=== PATIENT | male | born 1975 | race Caucasian/White ===

== ENCOUNTER 2017-06-05 08:50 | Emergency (ER) | payer OTHER ==
[~2017-06-05] VITALS: Ht 188 cm; Wt 92.0 kg
[~2017-06-05 08:50] MED LIST: ALBU1AER INH; MEDR4PAK3 PO; SUBO8MIS SL; VIST50CA PO
[2017-06-05 08:51] VITALS: BP 146/86; PULSE 83; RESP 16; TEMP 98.3; O2SAT 97
[2017-06-05] MEDS ORDERED: ALPR.5 PO (09:07)
[2017-06-05] MEDS ORDERED: HYDR-3583 PO (09:07)
[2017-06-05] MEDS ORDERED: SODIUM CHLORIDE 0.9% FLUSH 10 ML FLUSH IVF PRN (09:45)
[2017-06-05] MEDS ORDERED: ASPIRIN 81 MG CHEW TAB PO ONE (09:45)
[2017-06-05 09:51] VITALS: RESP 17; O2SAT 97
--- NOTE | 2017-06-05 09:58 | PD ---
HPI . Numbness Chief Complaint: Chest Pain Time Seen by Provider: 09:44 Travel History International Travel<30 days: No Contact w/Intl Traveler<30days: No Traveled to known affect area: No History of Present Illness HPI Patient presents with a chief complaint of left upper extremity numbness. Onset was about 6:30 AM. Symptoms are spontaneously improving. He is also complaining with some pain in his left axilla. He describes it as a sharp pain. No modifying factors. In addition, he states that he feels disoriented, short of breath and has a very dry mouth. He feels very anxious. He states that he took a Xanax and no symptoms are improving. Patient admits to tobacco abuse and alcohol abuse. He states that he smokes marijuana every other day. He denies any cocaine or methamphetamine abuse. [facility] Past Medical History Anxiety: Yes Diminished Hearing: No Neurologic: Yes (DEGENERATIVE DISC DISEASE) Social History Alcohol Use: Yes (frequently) Tobacco Use: Yes (1 ppd) Substance Use: Yes (THC weekly) Allergies-Medications (Allergen,Severity, Reaction): Coded Allergies: No Known Allergies (Unverified Adverse Reaction, Unknown, 06/05/17) Reported Meds & Prescriptions Reported Meds & Active Scripts Active Reported Hydrocodone-Acetaminophen 10-325 mg Tab 1 Tab PO Q4H PRN Xanax (Alprazolam) 0.5 Mg Tab 0.5 Mg PO Q4H PRN Review of Systems Except as stated in HPI: all other systems reviewed are Neg Cardiovascular: Positive: Chest Pain or Discomfort Respiratory: Positive: Shortness of Breath Neurologic: Positive: Paresthesia Physical Exam Narrative GENERAL: Awake and alert. He smells of tobacco and alcohol. SKIN: warm/dry. HEAD: Normocephalic. Atraumatic. EYES: Pupils equal and round. No scleral icterus. No injection or drainage. ENT: No nasal bleeding or discharge. Mucous membranes pink and moist. NECK: Trachea midline. Full range of motion without pain.. CARDIOVASCULAR: Regular rate and rhythm. Heart sounds are normal. RESPIRATORY: No accessory muscle use. Clear to auscultation. Breath sounds equal bilaterally. GASTROINTESTINAL: Abdomen soft. Nontender. Bowel sounds present. Nondistended. MUSCULOSKELETAL: No obvious deformities. Tender at the insertion of the left pectoralis muscle. NEUROLOGICAL: Awake and alert. No obvious cranial nerve deficits. Motor grossly within normal limits. Normal speech. PSYCHIATRIC: Appropriate mood and affect; insight and judgment normal. Data Data Last Documented VS Vital Signs Date Time Temp Pulse Resp B/P (MAP) Pulse Ox O2 Delivery O2 Flow Rate FiO2 06/05/17 09:51 17 97 Room Air 06/05/17 09:02 96 06/05/17 08:51 98.3 Orders Orders Basic Metabolic Panel (Bmp) (06/05/17 09:44) Complete Blood Count With Diff (06/05/17 09:44) Magnesium (Mg) (06/05/17 09:44) Troponin I (06/05/17 09:44) Chest, Single Ap (06/05/17 09:44) Ecg Monitoring (06/05/17 09:44) Iv Access Insert/Monitor (06/05/17 09:44) Oximetry (06/05/17 09:44) Aspirin Chew (Aspirin Chew) (06/05/17 09:45) Sodium Chloride 0.9% Flush (Ns Flush) (06/05/17 09:45) Electrocardiogram (06/05/17 ) Labs Laboratory Tests Test 06/05/17 09:52 White Blood Count 8.2 TH/MM3 Red Blood Count 4.97 MIL/MM3 Hemoglobin 16.5 GM/DL Hematocrit 47.4 % Mean Corpuscular Volume 95.4 FL Mean Corpuscular Hemoglobin 33.1 PG Mean Corpuscular Hemoglobin Concent 34.7 % Red Cell Distribution Width 13.0 % Platelet Count 232 TH/MM3 Mean Platelet Volume 7.9 FL Neutrophils (%) (Auto) 63.0 % Lymphocytes (%) (Auto) 21.7 % Monocytes (%) (Auto) 12.9 % Eosinophils (%) (Auto) 2.2 % Basophils (%) (Auto) 0.2 % Neutrophils # (Auto) 5.2 TH/MM3 Lymphocytes # (Auto) 1.8 TH/MM3 Monocytes # (Auto) 1.1 TH/MM3 Eosinophils # (Auto) 0.2 TH/MM3 Basophils # (Auto) 0.0 TH/MM3 CBC Comment DIFF FINAL Differential Comment Blood Urea Nitrogen 10 MG/DL Creatinine 0.79 MG/DL Random Glucose 90 MG/DL Calcium Level 8.9 MG/DL Magnesium Level 2.3 MG/DL Sodium Level 137 MEQ/L Potassium Level 3.9 MEQ/L Chloride Level 102 MEQ/L Carbon Dioxide Level 27.3 MEQ/L Anion Gap 8 MEQ/L Estimat Glomerular Filtration Rate 108 ML/MIN Troponin I LESS THAN 0.02 NG/ML MDM Medical Decision Making Medical Screen Exam Complete: Yes Emergency Medical Condition: Yes Interpretation(s) EKG shows a normal sinus rhythm with no acute ischemic change Differential Diagnosis My differential diagnosis of paresthesias includes but is not limited to anxiety , radiculopathy, peripheral neuropathy, peripheral vascular disease, compartment syndrome Narrative Course This patient presents with a chief complaint of left upper extremity numbness. The symptoms have improved with Xanax. He has some associated pain in his left axilla which he is calling chest pain. I have a low index of suspicion or ACS. CBC & BMP Diagram 06/05/17 09:52 Calcium Level 8.9, Magnesium Level 2.3 trop < 0.02 Last Impressions Chest X-Ray 06/05/17 0944 Signed Impressions: Service Date/Time: Monday, June 05, 2017 09:58 - CONCLUSION: 1. No acute cardiopulmonary disease. 2. 2 cm left axillary calcified mass which may reflect a calcified lymph node or old hematoma in the chest wall soft tissues. Clinical correlation is recommended. Suraj Garner MD No evidence of ACS. The patient will be discharged to home. Admission to the chest pain center was offered. However, the patient states that he feels good right now and wants to go home. Diagnosis Primary Impression: Paresthesia of left upper extremity Additional Impression: Strain of left pectoralis muscle Qualified Codes: S29.011A - Strain of muscle and tendon of front wall of thorax, initial encounter Patient Instructions: Chest Pain (DC), General Instructions Disposition: 01 DISCHARGE HOME Condition: Stable Chelsea Gonzalez MD Jun 05, 2017 09:57
--- NOTE | 2017-06-05 10:06 | RADRPT ---
EXAM DATE/TIME: 06/05/2017 09:58 [facility] COMPARISON: No previous studies available for comparison. INDICATIONS : Chest pains mid sternal to left chest and arm numbness x4 days. MEDICAL HISTORY : Hypertension. SURGICAL HISTORY : None. ENCOUNTER: Initial ACUITY: 4 - 6 days PAIN SCORE: 8/10 LOCATION: Left chest FINDINGS: No significant focal pleural or parenchymal opacities. Cardiomediastinal contours are within normal l imits. There is a 2 cm calcified density in the left axilla. Osseous structures are intact. CONCLUSION: 1. No acute cardiopulmonary disease. 2. 2 cm left axillary calcified mass which may reflect a calcified lymph node or old hematoma in the chest wall soft tissues. Clinical correlation is recommended. Suraj Garner MD on June 05, 2017 at 10:01 Board Certified Radiologist. This report was verified electronically.
[2017-06-05 10:21] LABS: AUTOMATED NEUTROPHIL # 5.2 TH/MM3 (1.8-7.7); BASOPHIL % 0.2 % (0.0-2.0); EOSINOPHIL # 0.2 TH/MM3 (0-0.4); EOSINOPHIL % 2.2 % (0.0-4.0); HEMATOCRIT 47.4 % (39.0-51.0); HEMO FLAGS DIFF FINAL; LYMPH % 21.7 % (9.0-44.0); LYMPHOCYTE # 1.8 TH/MM3 (1.0-4.8); MEAN CELL VOLUME 95.4 FL (80.0-100.0); MEAN CORPUSCULAR HEMOGLOBIN 33.1 PG (27.0-34.0); MEAN CORPUSCULAR HGB CONC 34.7 % (32.0-36.0); MONO % 12.9 % (0.0-8.0); PLATELET COUNT 232 TH/MM3 (150-450); RED BLOOD COUNT 4.97 MIL/MM3 (4.50-5.90); WHITE BLOOD COUNT 8.2 TH/MM3 (4.0-11.0)
[2017-06-05 10:48] LABS: ANION GAP 8 MEQ/L (5-15); BICARBONATE 27.3 MEQ/L (21.0-32.0); BLOOD UREA NITROGEN 10 MG/DL (7-18); CHLORIDE 102 MEQ/L (98-107); GLOMERULAR FILTRATION RATE 108 ML/MIN (>89); MAGNESIUM 2.3 MG/DL (1.5-2.5); POTASSIUM 3.9 MEQ/L (3.5-5.1); SODIUM (NA) 137 MEQ/L (136-145)
--- NOTE | 2017-06-05 18:47 | EKG ---
Date Performed: 06/05/2017 Time Performed: 09:00:58 PTAGE: 42 years EKG: Sinus rhythm NORMAL ECG INTERPRETATION BASED ON A DEFAULT AGE OF 40 YEARS Compared to prior tracing no significan t change PREVIOUS TRACING : 12/25/2015 04.44 DOCTOR: Traci Guerrero Interpretating Date/Time 06/05/2017 18:46:33
== END 2017-06-05 11:17 | disposition home or self-care (01) ==
LOC: NEPE 08:50
DX: S29.011A Strain of muscle and tendon of front wall of thorax, initial encounter (principal); X58.XXXA Exposure to other specified factors, initial encounter; R20.0 Anesthesia of skin; F41.9 Anxiety disorder, unspecified; F17.210 Nicotine dependence, cigarettes, uncomplicated; F12.90 Cannabis use, unspecified, uncomplicated
CPT/HCPCS: 71010; 80048; 83735; 84484; 85025; 93005; 99285

== ENCOUNTER 2017-07-02 08:54 | Emergency (ER) | payer OTHER ==
[~2017-07-02 08:54] MED LIST changes: -ALBU1AER INH; +ALPR.5 PO; +HYDR-3583 PO; -MEDR4PAK3 PO; -SUBO8MIS SL; -VIST50CA PO
[2017-07-02 08:57] VITALS: BP 134/77; PULSE 104; RESP 18; TEMP 99.1; O2SAT 98
[2017-07-02] MEDS ORDERED: CLIN300C5 PO (09:23)
[2017-07-02] MEDS ORDERED: ALEV220T14 PO (09:23)
[2017-07-02] MEDS ORDERED: CLIN150C14 PO (09:26)
[2017-07-02] MEDS ORDERED: PERI0.126 SWISH-SPIT (09:26)
[2017-07-02] MEDS ORDERED: PRED-503 PO (09:26)
[2017-07-02] MEDS ORDERED: NORC5TAB PO (09:26)
--- NOTE | 2017-07-02 09:27 | PD ---
HPI Chief Complaint: Oral / Dental Pain or Problem Time Seen by Provider: 09:17 Travel History International Travel<30 days: No Contact w/Intl Traveler<30days: No Traveled to known affect area: No History of Present Illness HPI 22-year-old male presents to emergency Department with complaint of left lower dental pain 4 days. Reports facial edema. Denies fevers, vomiting. Pain radiates to his left ear. Denies sore throat, difficulty swallowing, unusual drooling, uncontrolled. Has been taking his girlfriend's clindamycin 300 mg every 6 hours 2 days with no change in symptoms. Has been taking ibuprofen 600 mg for pain. No known aggravating or relieving factors. Pain is 10/10. Pain is constant. Describes it as a stabbing sensation. No known allergies. Has no other medical complaints. No other modifying factors or associated signs and symptoms. PFSH Past Medical History Anxiety: Yes Diminished Hearing: No Neurologic: Yes (DEGENERATIVE DISC DISEASE) Social History Alcohol Use: Yes (frequently) Tobacco Use: Yes (1 ppd) Substance Use: Yes (THC weekly) Allergies-Medications (Allergen,Severity, Reaction): Coded Allergies: No Known Allergies (Unverified Allergy, Unknown, 07/02/17) Reported Meds & Prescriptions Reported Meds & Active Scripts Active Ibuprofen 800 Mg Tab 800 Mg PO Q6HR PRN Peridex Liq (Chlorhexidine Gluconate (Mouth) Liq) 0.12% Soln 15 Ml SWISH-SPIT BID 10 Days Denio (Hydrocodone-Acetaminophen) 5 Mg-325 Mg Tab 1 Tab PO Q4H PRN Deltasone (Prednisone) 20 Mg Tab 40 Mg PO DAILY 4 Days start 07/03/2017 Clindamycin (Clindamycin HCl) 150 Mg Cap 450 Mg PO Q6H 10 Days Reported Xanax (Alprazolam) 0.5 Mg Tab 0.5 Mg PO Q6H PRN Aleve Arthritis (Naproxen Sodium) 220 Mg Tab 220 Mg PO BID Clindamycin (Clindamycin HCl) 300 Mg Cap 300 Mg PO Q6H Review of Systems Except as stated in HPI: all other systems reviewed are Neg Physical Exam Narrative GENERAL: Well-nourished, well-developed male patient, in no acute distress; afebrile, nontoxic-appearing SKIN: Warm and dry. HEAD: Atraumatic. Normocephalic. Left lower facial edema; without erythema; with tenderness on palpation. No lymphadenopathy. EYES: Pupils equal and round. No scleral icterus. No injection or drainage. ENT: Mucosa pink and moist. No erythema or exudates. No uvular edema. No uvular , palatal, or tonsillar deviation. Airway patent. EARS: Bilateral pinnae and external canals appear within normal limits. Bilateral tympanic membranes without erythema, dullness or perforation. MOUTH: Mucous membranes moist, no lesions, tongue and gums appear normal. Tooth #17 with tenderness on palpation; left lower back gingiva with fluctuance and edema and without drainage. NECK: Trachea midline. No lymphadenopathy. CARDIOVASCULAR: Regular rate. RESPIRATORY: No accessory muscle use. GASTROINTESTINAL: Flat. MUSCULOSKELETAL: No obvious deformities. No clubbing. No cyanosis. No edema. NEUROLOGICAL: Awake and alert. Oriented 3. No obvious cranial nerve deficits. Motor grossly within normal limits. Normal speech. PSYCHIATRIC: Appropriate mood and affect; insight and judgment normal. Data Data Last Documented VS Vital Signs Date Time Temp Pulse Resp B/P (MAP) Pulse Ox O2 Delivery O2 Flow Rate FiO2 07/02/17 10:01 20 07/02/17 08:57 99.1 104 134/77 (96) 98 Orders Orders Morphine Inj (Morphine Inj) (07/02/17 09:30) Clindamycin Inj (Cleocin Inj) (07/02/17 09:30) Prednisone (Deltasone) (07/02/17 09:30) Ed Discharge Order (07/02/17 10:06) [facility] Medical Decision Making Medical Screen Exam Complete: Yes Emergency Medical Condition: Yes Medical Record Reviewed: Yes Differential Diagnosis Dental abscess, gingivitis, infected dental caries, dentalgia Narrative Course 42-year-old male with dental abscess to the left lower molar area. Ears fluctuance to the area. See my procedure note for incision and drainage. IV site started. Clindamycin 600 mg IV and morphine 4 mg administered. Patient provided emergency dental information sheet for follow-up. Clindamycin, Peridex mouth rinse, ibuprofen, Denio prescribed for home. Instructed patient to follow up with primary care provider. Patient verbalizes understanding and agreement with treatment plan. Patient is medically cleared and stable for discharge. Discussed reasons to return to the emergency department. Patient agrees with treatment plan. The patients vital signs are stable and the patient is stable for outpatient follow-up and treatment. Patient discharged home, stable and in no acute distress. Procedures Procedure Narrative INCISION AND DRAINAGE OF ABSCESS: Hurricaine spray was used to anesthetize the area. The area was properly anesthetized. A number 11 scalpel was used to make a less than 0.5cm incision across the area of the abscess. The abscess was drained. Sterile gauze applied. Diagnosis Primary Impression: Dental abscess Referrals: [facility] Dentist Primary Care Physician Patient Instructions: Dental Abscess (ED), General Instructions Departure Forms: Tests/Procedures, Work Release Enter return to work date: Jul 04, 2017 Additional Instructions: Complete full course of antibiotics Ibuprofen or Tylenol as directed and as needed to reduce pain and inflammation Use Peridex as directed for oral hygiene Warm or cool compresses to the affected area Follow-up with dentist Follow-up with primary care provider Return to emergency department immediately with worsening of symptoms Med/Other Pt SpecificInfo: Prescription(s) given Scripts Ibuprofen (Ibuprofen) 800 Mg Tab 800 MG PO Q6HR Y for PAIN, #30 TAB 0 Refills Prov: Quin Naranjo 07/02/17 Chlorhexidine Gluconate (Mouth) Liq (Peridex Liq) 0.12% Soln 15 ML SWISH-SPIT BID for 10 Days, #300 ML 0 Refills Prov: Quin Naranjo 07/02/17 Hydrocodone-Acetaminophen (Denio) 5 Mg-325 Mg Tab 1 TAB PO Q4H Y for PAIN, #12 TAB 0 Refills Prov: Quin Naranjo 07/02/17 Prednisone (Deltasone) 20 Mg Tab 40 MG PO DAILY for 4 Days, #8 TAB 0 Refills start 07/03/2017 Prov: Quin Naranjo 07/02/17 Clindamycin (Clindamycin) 150 Mg Cap 450 MG PO Q6H for Infection for 10 Days, #120 CAP 0 Refills Prov: Quin Naranjo 07/02/17 Disposition: 01 DISCHARGE HOME Condition: Stable Quin Naranjo Jul 02, 2017 09:27
[2017-07-02] MEDS ORDERED: ALPR.5 PO (09:28)
[2017-07-02] MEDS ORDERED: MORPHINE SULFATE 4 MG/ML INJ IV ONE (09:30)
[2017-07-02] MEDS ORDERED: CLINDAMYCIN INJ 600 MG in SODIUM CHLORIDE 0.9% INJ 100 ML IV ONE (09:30)
[2017-07-02] MEDS ORDERED: predniSONE 20 MG TAB PO ONE (09:30)
[2017-07-02 10:01] VITALS: RESP 20
[2017-07-02] MEDS ORDERED: IBUP1TAB7 PO (10:09)
== END 2017-07-02 10:55 | disposition home or self-care (01) ==
LOC: NEPD 08:54
DX: K04.7 Periapical abscess without sinus (principal); F41.9 Anxiety disorder, unspecified; F17.200 Nicotine dependence, unspecified, uncomplicated; Z79.899 Other long term (current) drug therapy
CPT/HCPCS: 41800; 96365; 96375; 99284; J2270; J7512; 10060; 96374